=== PATIENT | male | born 1960 | race Caucasian/White ===

== ENCOUNTER → 2024-08-30 14:12 | Outpatient (REF) | payer OTHER, SELFPAY | LOC: HWRAD 14:12 | PROVIDERS: ATTENDING PHYSICIAN Internal Medicine Endocrinology, Diabetes & Metabolism; FAMILY PHYSICIAN Nurse Practitioner | DX: E04.1 Nontoxic single thyroid nodule (principal) | CPT/HCPCS: 76536 ==

== ENCOUNTER → 2024-09-04 14:28 | Outpatient (REF) | payer OTHER, SELFPAY | LOC: HWRAD 14:28 | PROVIDERS: ATTENDING PHYSICIAN Physician Assistant; FAMILY PHYSICIAN Nurse Practitioner | DX: N20.0 Calculus of kidney (principal) | CPT/HCPCS: 76770 ==

== ENCOUNTER 2025-03-27 10:13 | Emergency (ER) | payer MEDICARE, SELFPAY ==
[2025-03-27 10:19] VITALS: BP 122/74
[2025-03-27 11:47] VITALS: BP 113/78
[2025-03-27] MEDS: DECADRON 10 MG PO (12:32)
--- NOTE | 2025-03-27 12:50 | ED.GENMED ---
History of Present Illness
General
Chief Complaint: Allergic Reaction
Time Seen by Provider: 03/27/25 11:44
History of Present Illness
History of Present Illness:
64-year-old male with history of hypertension hyperlipidemia presenting to the emergency department for concern of allergic reaction. Patient notes that he has an allergy to bee stings and thought that maybe he was stung by bee a few days ago. He
noted a rash to the right upper extremity, which has since improved, possibly secondary to poison kamala. However yesterday started to have swelling to his lips and tongue. That got better, however again returned this morning. He went to his family
doctor who noted that he should take Benadryl. He came to the hospital due to persistent concerns regarding the swelling. Denies any difficulty swallowing and notes that the swelling has since improved. Does report that he is on a low-dose of
lisinopril, which she has been on for a while, however would like to get off this medication because his blood pressure is controlled. Denies any difficulty breathing. Denies fever. Denies additional acute medical complaints
Past History
Past History
ED Past Medical History: CVA, Hypercholesterolemia and Other (kidney stones)
ED Past Surgical History: Urological (lithotripsy)
Social History
Tobacco: Non-smoker
Alcohol: Occasional
Drug: None
Personal:
Living: with family
Phy Exam
Physical Exam
Physical Exam:
General: Well-appearing, no clinical signs of dehydration, nontoxic and in no acute distress
HEENT: protecting airway, no present swelling to the tongue or the lips, no oropharyngeal swelling
Neck: appears supple
CV: Normal heart rate, regular rhythm
Resp: No accessory muscle use, no increased work of breathing, lungs clear to auscultation bilaterally
Abd: No distention
Extremities: No deformities, no swelling
Neuro: alert, no focal neurologic deficit
: deferred
Rectal: deferred
Psych: Normal affect
Skin: Intact
Course
Orders/Labs/Results
Orders:
Orders
03/27/25 12:23
Dexamethasone Pf [Decadron] 10 mg PO NOW STA
Vital Signs
Initial and Last Documented VS:
Initial Vital Signs
Temp Pulse Resp BP Pulse Ox
98.4 F 87 16 122/74 98
03/27/25 10:19 03/27/25 10:19 03/27/25 10:19 03/27/25 10:19 03/27/25 10:19
Last Documented Vital Signs
Temp Pulse Resp BP Pulse Ox
98.4 F 68 14 113/78 98
03/27/25 10:19 03/27/25 11:47 03/27/25 11:47 03/27/25 11:47 03/27/25 11:47
MDM/Problems Addressed
MDM/Problems Addressed:
64-year-old male with history of hypertension hyperlipidemia presenting for concern of lip and tongue swelling. Vital signs are normal.
On exam patient is resting comfortably, no acute distress or discomfort. Notes that the swelling has since improved. No present swelling. Thought that he may have been stung by a bee, prior allergies. No sign of any bee sting. No sign of any
skin infection, noted a previous rash to the right upper extremity. Does however report that he is on lisinopril. At this time concern for LENNOX inhibitor induced angioedema. No present airway compromise, however feel patient should off of this
medication. Notes that he has been in discussion with his primary care doctor stopping his blood pressure medication, he is only on 5 mg. Will stop medication today, and advised that he follow-up with his any additional need for blood pressure
management. From a allergic reaction standpoint, will administer 1 dose of Decadron. Otherwise no indication for epi. Feel stable for discharge, however strict return precautions regarding allergic reactions communicated, educated on use of
epipen, which he has at home. Patient verbalized understanding
*Pulse Oximetry
SaO2: 98
Oxygen Mode of Delivery: Room air
Patient hypoxic: no
*Critical Care Note
Total Time (30-74mins, 75-104mins- exclusive of procedures): Not Applicable
ED Attending Note
-
Portions of this chart may have been created with voice recognition software.� Occasional wrong word or��sound alike� substitutions may have occurred due to the inherent limitations of voice recognition software.
Discharge Plan
Departure
Patient Disposition: Home (Routine Discharge)
Date of Disposition: 03/27/25
Time of Disposition: 12:48
Patient with high blood pressure during this ER visit?: No
Condition: Good
Discharge Problem:
Allergic reaction, Angioedema
Instructions: Angioedema
Prescriptions:
No Action
Atorvastatin
80 mg PO DAILY
Lisinopril
10 mg PO DAILY
cephalexin 500 MG capsule
500 mg PO QID Qty: 20 0RF
epinephrine [EpiPen 2-Angel] 0.3 mg/0.3 mL auto-injector
0.3 mg IM ONCE Qty: 2 0RF
prednisone 50 mg tablet
50 mg PO DAILY Qty: 4 0RF
Referrals:
Cindy Mejia CRNP [Family Provider, Family Practice]
Activity Restrictions/Additional Instructions:
You were seen in the emergency department for concern of swelling to your lips and tongue
You had a reassuring examination and vital signs while in the emergency department, however given your use of lisinopril, we recommend that you stop this medication immediately due to side effects of angioedema, which is swelling to the tongue.
Please follow-up closely with your primary care physician.
Return to the emergency department for any worsening of your symptoms, or any development of chest pain, difficulty breathing, abdominal pain with persistent vomiting and inability to tolerate food or liquid by mouth (concern for dehydration),
weakness, headache or confusion, fever greater than 100.4, or any additional symptoms that are concerning to you.
Thank you for choosing [facility].
Interventions
Interventions:
*Risk Screen - Suicide Last Done: 03/27/25 10:19
ED- Cardiac Assessment Last Done: 03/27/25 12:01
ED- Pulmonary Assessment Last Done: 03/27/25 12:01
ED-Skin Assessment Last Done: 03/27/25 12:01
Discharge Date and Time
Print Language: [place]
== END 2025-03-27 13:07 | disposition home or self-care (01) ==
LOC: EMR 10:13
PROVIDERS: EMERGENCY PHYSICIAN Student in an Organized Health Care Education/Training Program; FAMILY PHYSICIAN Nurse Practitioner
DX: T78.3XXA Angioneurotic edema, initial encounter (principal); I10 Essential (primary) hypertension; E78.00 Pure hypercholesterolemia, unspecified; Z86.73 Personal history of transient ischemic attack (TIA), and cerebral infarction without residual deficits; Z91.030 Bee allergy status; X58.XXXA Exposure to other specified factors, initial encounter
CPT/HCPCS: 99283

== ENCOUNTER → 2025-05-24 10:23 | Outpatient (REF) | payer MEDICARE, SELFPAY | LOC: RAD 10:23 | PROVIDERS: ATTENDING PHYSICIAN Physician Assistant Medical; FAMILY PHYSICIAN Nurse Practitioner | DX: M54.50 Low back pain, unspecified (principal) | CPT/HCPCS: 72110 ==